=== PATIENT | female | born 1990 | race Caucasian/White ===

== ENCOUNTER 2025-05-25 08:14 | Outpatient (CLI) | payer MEDICAID ==
--- NOTE | 2025-05-25 10:02 | RADIOLOGY REPORT ---
CLINICAL HISTORY: SPONDYLOSIS W/O MYELOPATHY OR RADICULOPATHY,LUMBAR REGION TECHNIQUE: MRI of the thoracic spine was performed without gadolinium. COMPARISON: None FINDINGS: The alignment and bone marrow signal of the thoracic spine are normal. The vertebral body heights and intervertebral disc spaces are maintained. The thoracic spinal cord is normal in caliber with no abnormal signal or evidence for compression. There is no significant disc herniation or facet hypertrophy. The central canal and neural foramina are patent. IMPRESSION: No significant MRI abnormality of the thoracic spine.
--- NOTE | 2025-05-25 10:44 | RADIOLOGY REPORT ---
CLINICAL INFORMATION: Cervical radiculopathy. TECHNIQUE: Multisequence multiplanar MRI images of the cervical spine were obtained without contrast. COMPARISON: None FINDINGS: Examination is limited due to artifact, particularly on the sagittal STIR sequence. Bones: Straightening of the normal cervical lordosis. Vertebral body heights are maintained. Posterior elements are intact. No acute fracture. No focal suspicious marrow signal abnormality. Spinal cord: Spinal cord is normal in signal intensity and morphology. Paraspinal soft tissues: Paraspinal and prevertebral soft tissues are unremarkable. Other: Prominent bilateral level 2 cervical lymph nodes, with the largest measuring up to 2.4 by 1.0 cm at the left level 2A station, demonstrating normal reniform shape and fatty hilum although there is some cortical thickening. Cervical disc levels: C2-C3: Disc desiccation. No significant spinal canal or neural foraminal stenosis. C3-C4: Disc desiccation. Minimal disc bulge mildly flattening the ventral aspect of the thecal sac. There is [id number] spinal canal stenosis secondary to the disc bulge and congenital spinal canal narrowing. Facet and uncinate hypertrophy with moderate left neural foraminal stenosis and mild right neural foraminal stenosis. C4-C5: Disc desiccation with diffuse disc bulge mildly flattening the ventral aspect of the thecal sac. Moderate spinal canal stenosis secondary to the disc bulge and congenital spinal canal narrowing. Facet and uncinate hypertrophy with moderate left and mild right neural foraminal stenoses. C5-C6: Disc desiccation with mild disc space narrowing and diffuse disc bulge. The disc bulge and congenital spinal canal narrowing contributes to moderate spinal canal stenosis. Facet and uncinate hypertrophy with mild bilateral neural foraminal stenoses. C6-C7: Disc desiccation with diffuse disc bulge and congenital spinal canal narrowing causing moderate spinal canal stenosis. Facet and uncinate hypertrophy with mild bilateral neural foraminal stenoses. C7-T1: Disc desiccation. No significant spinal canal or neural foraminal stenosis. IMPRESSION: 1. Limited study due to artifact, particularly on the sagittal STIR sequence. 2. 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 3. Congenital spinal canal narrowing contributes to the spinal canal stenoses. 4. Prominent bilateral level 2 cervical lymph nodes, may be reactive. Correlate with clinical findings.
== END 2025-05-25 23:59 | disposition home or self-care (01) ==
LOC: MRI02 08:14
PROVIDERS: ATTEND Anesthesiology
DX: M50.123 Cervical disc disorder at C6-C7 level with radiculopathy (principal); M47.815 Spondylosis without myelopathy or radiculopathy, thoracolumbar region; M48.02 Spinal stenosis, cervical region
CPT/HCPCS: 72146; 72148